=== PATIENT | male | born 1990 | race American Indian/Alaskan Native ===

== ENCOUNTER 2021-03-07 05:14 | Emergency (ER) | payer SELFPAY ==
[2021-03-07 05:33] VITALS: BP 165/98
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
--- NOTE | 2021-03-07 08:53 | XRay Report ---
LEFT RIBS 4 VIEWS WITH CHEST X-RAY INDICATION / CLINICAL INFORMATION: pain. COMPARISON: None available. FINDINGS: Questionable fracture of the left lateral ninth rib although the lucency seen in this area may repres ent bowel gas. No other significant skeletal abnormality. There is no evidence of a left-sided pneumo thorax. Signer Name: Jim Pascal MD FACR Signed: 03/07/2021 8:48 AM Workstation Name: [id number]
[2021-03-07] MEDS ORDERED: ACETAMINOPHEN 500 MG TAB PO ONE (09:55)
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
[2021-03-07] MEDS ORDERED: IBUPROFEN 800 MG TAB PO ONE (10:23)
[2021-03-07] MEDS ORDERED: HYDROcodone/ACETAMINOPHEN 5-325 MG TAB PO ONE (10:23)
== END 2021-03-07 10:51 | disposition home or self-care (01) ==
LOC: ED 05:14
DX: S22.31XA Fracture of one rib, right side, initial encounter for closed fracture (principal); M54.2 Cervicalgia; G96.9 Disorder of central nervous system, unspecified; V89.2XXA Person injured in unspecified motor-vehicle accident, traffic, initial encounter; Y93.89 Activity, other specified; Y92.488 Other paved roadways as the place of occurrence of the external cause; Y99.8 Other external cause status
CPT/HCPCS: 70450; 72125; 99284